=== PATIENT | male | born 1990 | race Two or more races ===

== ENCOUNTER 2023-07-08 18:58 | Emergency (ER) | payer OTHER ==
[~2023-07-08] VITALS: Ht 175.3 cm; Wt 77.3 kg
[~2023-07-08 18:58] MED LIST: HYDR10SY16 PO
[2023-07-08 19:20] VITALS: TEMP 98.4
[2023-07-08] MEDS ORDERED: HYDROmorphone HCL 2 MG/ML SYRINGE IVP ONE (20:30)
[2023-07-08] MEDS: IBUPROFEN 600 MG TABLET PO ONE (20:39)
[2023-07-08] MEDS: ACETAMINOPHEN 500 MG TABLET PO ONE (20:39)
[2023-07-08] MEDS: DiphenhydrAMINE HCL 25 MG CAPSULE PO ONE (20:39)
[2023-07-08] MEDS: MELATONIN 3 MG TABLET PO ONE (20:45)
[2023-07-08] MEDS ORDERED: MELA3CAP2 PO (21:06)
[2023-07-08] MEDS ORDERED: DIPH50CA37 PO (21:06)
[2023-07-08] MEDS ORDERED: ACET-66 PO (21:06)
[2023-07-08] MEDS ORDERED: IBUP-1554 PO (21:06)
[2023-07-08 21:15] VITALS: BP 139/86; PULSE 81; RESP 16
== END 2023-07-08 21:16 | disposition home or self-care (01) ==
LOC: EMS 18:59
DX: F43.20 Adjustment disorder, unspecified (principal); G47.00 Insomnia, unspecified; F41.9 Anxiety disorder, unspecified; Z87.891 Personal history of nicotine dependence
CPT/HCPCS: 99284; Z7502; Z7610

== ENCOUNTER 2023-09-28 21:55 | Emergency (ER) | payer OTHER ==
[~2023-09-28] VITALS: Ht 175.3 cm; Wt 81.8 kg
[~2023-09-28 21:55] MED LIST changes: +ACET-66 PO; +DIPH50CA37 PO; -HYDR10SY16 PO; +IBUP-1554 PO; +MELA3CAP2 PO
[2023-09-28 21:57] VITALS: BP 120/71; PULSE 62; RESP 16; TEMP 97.8
[2023-09-28] MEDS: LORazepam 2 MG TABLET PO ONE (22:42)
[2023-09-28] MEDS ORDERED: LORA-1000 PO (22:52)
== END 2023-09-28 23:06 | disposition home or self-care (01) ==
LOC: EMS 21:55
DX: F43.20 Adjustment disorder, unspecified (principal); F41.9 Anxiety disorder, unspecified; Z87.891 Personal history of nicotine dependence
CPT/HCPCS: 99283

== ENCOUNTER 2024-04-14 11:41 | Emergency (ER) | payer OTHER ==
[~2024-04-14] VITALS: Ht 175.3 cm; Wt 84.1 kg
[~2024-04-14 11:41] MED LIST changes: +LORA-1000 PO
[2024-04-14 11:55] VITALS: TEMP 98.4
[2024-04-14 12:19] LABS: COVID AG,FIA SOURCE NASAL SWAB
[2024-04-14 13:36] LABS: INFLUENZA TYPE A NEGATIVE FOR TYPE A (NEGATIVE); INFLUENZA TYPE B NEGATIVE FOR TYPE B (NEGATIVE); SARS-COV2 (COVID) ANTIGEN,FIA Negative (Negative)
[2024-04-14 13:55] VITALS: BP 126/85; PULSE 70; RESP 18; O2SAT 99
[2024-04-14] MEDS ORDERED: ACET-3385 PO (14:41)
[2024-04-14] MEDS ORDERED: IBUP-1492 PO (14:41)
[2024-04-14] MEDS ORDERED: BENZ-227 PO (14:41)
[2024-04-14] MEDS: ACETAMINOPHEN 500 MG TABLET PO ONE (14:49)
[2024-04-14] MEDS: BENZONATATE 100 MG CAPSULE PO ONE (14:49)
[2024-04-14] MEDS: IBUPROFEN 600 MG TABLET PO ONE (14:49)
== END 2024-04-14 15:43 | disposition home or self-care (01) ==
LOC: EMS 11:41
DX: J02.8 Acute pharyngitis due to other specified organisms (principal); B97.89 Other viral agents as the cause of diseases classified elsewhere; F41.9 Anxiety disorder, unspecified; Z20.822 Contact with and (suspected) exposure to COVID-19
CPT/HCPCS: 87430; 87804; 99284; Z7502; Z7610